=== PATIENT | male | born 1985 | race African-American/Black ===

== ENCOUNTER 2018-09-28 20:52 | Emergency (ER) | payer SELFPAY | END 2018-09-28 22:03 | disposition left against medical advice (07) | LOC: EDBD 20:52 → ER 20:57 | DX: M54.2 Cervicalgia (principal); Z53.21 Procedure and treatment not carried out due to patient leaving prior to being seen by health care provider; V43.92XA Unspecified car occupant injured in collision with other type car in traffic accident, initial encounter; Y93.89 Activity, other specified; Y99.8 Other external cause status; Y92.89 Other specified places as the place of occurrence of the external cause ==